=== PATIENT | female | born 1975 | race Caucasian/White ===

== ENCOUNTER 2017-04-08 19:44 | Emergency (ER) | payer OTHER ==
[~2017-04-08] VITALS: Ht 175.3 cm; Wt 79.4 kg
[2017-04-08 19:51] VITALS: BP 128/64
[2017-04-08] MEDS ORDERED: TDAP [DIPH/PERTUSSIS/TET] 0.5 ML VIAL IM ONE ×2 (20:20→20:30)
== END 2017-04-08 21:22 | disposition home or self-care (01) ==
LOC: ER 19:48
DX: S61.111A Laceration without foreign body of right thumb with damage to nail, initial encounter (principal); W45.8XXA Other foreign body or object entering through skin, initial encounter; Y93.89 Activity, other specified; Y92.89 Other specified places as the place of occurrence of the external cause; Y99.8 Other external cause status
CPT/HCPCS: 12001; 90471; 90715; 99283; A6402